=== PATIENT | male | born 1965 | race Hispanic/Latino ===

== ENCOUNTER 2019-10-09 15:30 | Emergency (ER) | payer SELFPAY ==
[2019-10-09] MEDS ORDERED: IBUPROFEN 400 MG TABLET ONE (15:56)
[2019-10-09] MEDS ORDERED: IBUPROFEN 200 MG TAB ONE (15:56)
== END 2019-10-09 16:47 | disposition home or self-care (01) ==
LOC: EDH 15:30
DX: M79.605 Pain in left leg (principal); M79.652 Pain in left thigh; M79.662 Pain in left lower leg; E11.9 Type 2 diabetes mellitus without complications; I10 Essential (primary) hypertension; E78.5 Hyperlipidemia, unspecified; Z98.890 Other specified postprocedural states; Z72.0 Tobacco use
CPT/HCPCS: 73552; 73590; 93971